=== PATIENT | female | born 1970 | race Two or more races ===

== ENCOUNTER 2019-11-20 06:25 | Day surgery (SDC) | payer OTHER ==
[~2019-11-20 06:25] MED LIST: TAMIFLU45 MG PO
[2019-11-20] MEDS ORDERED: Tylenol #3 PO (08:38)
[2019-11-20] MEDS ORDERED: MONDOXYNE NL100 MG PO (08:38)
== END 2019-11-20 12:30 | disposition home or self-care (01) ==
LOC: CIR.AMB 06:25 → ADM 08:15 → CIR.AMB 08:15
DX: D25.0 Submucous leiomyoma of uterus (principal); N84.0 Polyp of corpus uteri; N84.1 Polyp of cervix uteri